=== PATIENT | male | born 1965 | race Two or more races ===

== ENCOUNTER → 2018-05-12 | Emergency (ER) | payer OTHER ==
[~2018-05-12] VITALS: Ht 180.3 cm; Wt 93.0 kg
[~2018-05-12] MED LIST: PERCOCET 5-3251 EACH PO; PROMETHAZINE HC25 MG PO; ZYRTEC5 M1
== END | disposition home or self-care (01) ==
LOC: ER 12:17
DX: N20.1 Calculus of ureter (principal)

== ENCOUNTER 2018-05-13 09:39 | Emergency (ER) | payer OTHER ==
[~2018-05-13] VITALS: Ht 180.3 cm; Wt 93.0 kg
[~2018-05-13 09:39] MED LIST changes: -PERCOCET 5-3251 EACH PO; -PROMETHAZINE HC25 MG PO
[2018-05-13] MEDS ORDERED: PROMETHAZINE HC25 MG PO (14:41)
[2018-05-13] MEDS ORDERED: PERCOCET 5-3251 EACH PO (14:41)
== END 2018-05-13 14:58 | disposition home or self-care (01) ==
LOC: ER 09:39
DX: N20.1 Calculus of ureter (principal)

== ENCOUNTER 2018-07-18 07:53 | Outpatient (CLI) | payer OTHER ==
[~2018-07-18 07:53] MED LIST changes: +PERCOCET 5-3251 EACH PO; +PROMETHAZINE HC25 MG PO
== END 2018-07-18 07:56 | disposition home or self-care (01) ==
LOC: SONOGRAMA 07:53
DX: R22.2 Localized swelling, mass and lump, trunk (principal)